=== PATIENT | male | born 1990 | race Caucasian/White ===

== ENCOUNTER → 2021-04-16 07:49 | Outpatient (CLI) | payer OTHER, SELFPAY ==
--- NOTE | ~2021-04-16 | US_ITS ---
EXAMINATION: US right upper quadrant EXAM DATE: 04/16/2021 08:15 INDICATION: Elevated levels of transaminase and lactic acid dehydrogenase. TECHNIQUE: Multiple grayscale and Doppler images of the abdomen right upper quadrant were obtained (b y a technologist who performed the scan) and subsequently reviewed. There is no prior study for keith thomas. FINDINGS: The pancreatic head and body are normal in appearance. The pancreatic tail is not visualized. The l iver has normal echogenicity and contour. There are no focal liver lesions identified. There is no evidence of intrahepatic biliary duct dilation. Portal venous flow was seen in the hepatopedal, nor mal direction and has normal Doppler waveform. No right-sided hydronephrosis. Common bile duct measures 3 mm, which is normal. The gallbladder wall is normal in thickness, with ex pected amount of distention. No sonographic evidence of pericholecystic fluid. Multiple tiny gallbl adder polyps not likely clinically significant. Technologist performing exam reports patient did not demonstrate sonographic Rivera's sign. Please note that this sign is less reliable in patients who have received pain medication. IMPRESSION: 1. Multiple tiny gallbladder polyps not likely clinically significant. Reviewed, dictated and finalized at location B.
== END ==
PROVIDERS: PCP Nurse Practitioner Family; Visit Provider Nurse Practitioner Family
DX: R74.01 Elevation of levels of liver transaminase levels (principal); K82.4 Cholesterolosis of gallbladder
CPT/HCPCS: 76705

== ENCOUNTER → 2022-01-07 08:44 | Outpatient (CLI) | payer OTHER, SELFPAY ==
--- NOTE | ~2022-01-07 | US_ITS ---
US breast RT limited INDICATION: Gynecomastia. Palpable lump. TECHNIQUE: Dedicated right breast ultrasound. Comparison images of the left subareolar location of th e breasts. COMPARISON: No prior studies for comparison. FINDINGS: The right breast is composed of normal heterogeneous echotexture without focal solid or cys tic mass. IMPRESSION: 1: Normal right breast ultrasound. BI-RADS CATEGORY 1 - NEGATIVE Reviewed, dictated and finalized at location A.
== END ==
PROVIDERS: PCP Nurse Practitioner Family; Visit Provider Nurse Practitioner Family
DX: N62 Hypertrophy of breast (principal)
CPT/HCPCS: 76642

== ENCOUNTER → 2023-06-20 13:29 | Outpatient (CLI) | payer OTHER, SELFPAY ==
--- NOTE | ~2023-06-20 | MR_ITS ---
EXAMINATION: MR cervical spine wo con DATE: 06/20/2023 14:20 INDICATION: Cervical disc pain. Neck pain. TECHNIQUE: Magnetic resonance imaging (MRI) of the cervical spine was performed without intravenous c ontrast. COMPARISON: None FINDINGS: There is 4 degrees dextrocurvature of cervical spine. There is mild kyphosis of cervical sp ine. Vertebral body heights and intervertebral disc heights are normal. The spinal cord signal intens ity is normal. The following disc levels are specifically discussed: C2-C3: The disc does not extend beyond the endplate margin. There is no uncovertebral joint osteoarth ritis. There is mild bilateral facet joint osteoarthritis. There is no neural foraminal stenosis. The re is no central canal stenosis. C3-C4: The disc does not extend beyond the endplate margin. There is no uncovertebral joint osteoarth ritis. There is mild bilateral facet joint osteoarthritis. There is no neural foraminal stenosis. The re is no central canal stenosis. C4-C5: The disc does not extend beyond the endplate margin. There is no uncovertebral joint osteoarth ritis. There is mild bilateral facet joint osteoarthritis. There is no neural foraminal stenosis. The re is no central canal stenosis. C5-C6: The disc does not extend beyond the endplate margin. There is mild bilateral uncovertebral mirna nt osteoarthritis. There is no facet joint osteoarthritis. There is no neural foraminal stenosis. The re is no central canal stenosis. C6-C7: The disc does not extend beyond the endplate margin. There is mild bilateral uncovertebral mirna nt osteoarthritis. There is no facet joint osteoarthritis. There is no neural foraminal stenosis. The re is no central canal stenosis. C7-T1: The disc does not extend beyond the endplate margin. There is no uncovertebral joint osteoarth ritis. There is mild bilateral facet joint osteoarthritis. There is no neural foraminal stenosis. The re is no central canal stenosis. IMPRESSION: 1. Mild cervical spondylosis. Reviewed, dictated and finalized at location E.
== END ==
PROVIDERS: PCP Nurse Practitioner Family
DX: M54.2 Cervicalgia (principal); M43.02 Spondylolysis, cervical region
CPT/HCPCS: 72141